=== PATIENT | female | born 2005 | race Hispanic/Latino ===

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

== ENCOUNTER 2024-05-05 22:23 | Emergency (ER) | payer MEDICAID ==
[~2024-05-05] VITALS: Ht 154.9 cm; Wt 71.7 kg
[~2024-05-05 22:23] MED LIST: AMOX1TAB16 PO
--- NOTE | 2024-05-05 22:43 | ERN ---
ED Note History of Present Illness Stated Complaint: VAGINAL BLEEDING Chief Complaint: Vaginal Bleeding Time Seen by MD: 22:26 Dictation: This is a 18-year-old female who is 11.2 weeks came in with vaginal bleeding that started 1 hour prior to the presentation to the ER. She reported that she was passing chunks of blood red in color associated with suprapubic pain. She is 2 para 1 no fevers chills or rigors. No diarrhea, burning micturition. No history of any blunt injury to the abdomen. Patient brought a picture of her bleeding sample in the toilet which showed large clots Temperature 98 pulse 92 respirations 16 blood pressure 138/86 with a pulse oximetry of 100% on room Allergies: Coded Allergies: No Known Drug Allergies (Unverified Allergy, Unknown, 08/30/22) Home Meds Active Scripts Amoxicillin/Potassium Clav (Amox Tr-K Clv 875-125 mg Tab) 1 Each Tablet, 1 EACH PO BID for 10 Days, #20 TAB Prov:NICHO EDWARDS 09/02/22 Past Medical History Past Medical History: No Pertinent History Surgical History: Tonsillectomy Social History: Negative, Lives with family History: Not Applicable LMP: Feb 20, 2024 : 2 Para: 1 Aborts: 2 RN Note Reviewed/Agreed w/PFSH: Yes Review of System Dictation Constitutional: Negative for fever,chills, and weight loss Eyes: Negative for injury, pain,redness, and discharge ENT: Negative for injury,pain or swelling Cardiovascular: Negative for chest pain, palpitations, and edema Respiratory: Negative for shortness of breath, cough, and wheezing, Abdomen/GI: Negative for abdominal pain, nausea, vomiting, diarrhea, and constipation Back: Negative for injury and pain : Positive for vaginal, bleeding and MS/Extremity: Negative for injury and deformity Skin: Negative for rash, and discoloration Neuro: Negative for headache, weakness, numbness, tingling, and seizure Psych: Negative for suicide ideation, homicidal ideation, and hallucinations Initial Vital Sign VS Vital Signs Date Time Temp Pulse Resp B/P (MAP) Pulse Ox O2 Delivery O2 Flow Rate FiO2 05/05/24 22:24 98.1 92 16 138/86 100 Room Air 05/05/24 22:46 0 21 Physical Exam Dictation General: awake, alert, NAD Head/Face: Normocephalic, atraumatic Eyes: PERRL, EOMI, vision at baseline ENT: oral cavity clear, TMs clear, no signs of infection Neck: Trachea midline, supple, no nuchal rigidity Cardiovascular: RRR, normal S1/S2, No MRGs, no JVD Respiratory: CTAB, no respiratory distress, No rales or wheezes Abdomen: Soft, non-tender, non-distended, normal bowel sounds, no guarding or rebound. 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 Results (Laboratory/Radiology) Laboratory/Radiology Laboratory Tests Test 05/05/24 22:40 05/05/24 22:45 Urine Color YELLOW (YELLOW) Urine Appearance CLOUDY (CLEAR) H Urine pH 5.5 (5.0-8.0) Urine Specific [place] 1.029 (1.001-1.031) Urine Protein 30 mg/dL (NEGATIVE) H Urine Glucose (UA) NEGATIVE mg/dL (NEGATIVE) Urine Ketones 20 mg/dL (NEGATIVE) H Urine Occult Blood LARGE (NEGATIVE) H Urine Nitrate NEGATIVE (NEGATIVE) Urine Bilirubin NEGATIVE mg/dL (NEGATIVE) Urine Urobilinogen 0.2 mg/dL (0.2-1.0) Urine Leukocyte Esterase NEGATIVE Sherman/uL Urine RBC TNTC /HPF (0-1) H Urine WBC 2-5 /HPF (0-1) H Urine Squamous Epithelial Cells FEW /HPF (0-2) Urine Bacteria None /HPF (None Seen) White Blood Count 11.1 K/uL (4.8-10.8) H Red Blood Count 4.47 MIL/uL (4.00-5.50) Hemoglobin 13.1 g/dL (12.0-16.0) Hematocrit 38.4 % (36-48) Mean Corpuscular Volume 85.9 fL (80-100) Mean Corpuscular Hemoglobin 29.3 pg (27.0-33.0) Mean Corpuscular Hemoglobin Concent 34.1 g/dL (32.0-36.0) Red Cell Distribution Width 15.2 % (11.0-15.5) Platelet Count 285 K/uL (130-400) Mean Platelet Volume 11.9 fL (7.5-10.5) H Immature Granulocyte % (Auto) 0.4 % (0-1) Neutrophils (%) (Auto) 77.1 % (40.0-77.0) H Lymphocytes (%) (Auto) 15.2 % (21.0-51.0) L Monocytes (%) (Auto) 6.1 % (3.0-13.0) Eosinophils (%) (Auto) 0.8 % (0.0-8.0) Basophils (%) (Auto) 0.4 % (0.0-5.0) Neutrophils # (Auto) 8.6 K/uL (1.8-7.7) H Lymphocytes # (Auto) 1.7 K/uL (1.0-4.8) Monocytes # (Auto) 0.7 K/uL (0.1-1.0) Eosinophils # (Auto) 0.09 K/uL (0.00-0.70) Basophils # (Auto) 0.04 K/uL (0.00-0.20) Absolute Immature Granulocyte (auto 0.04 K/uL (0-1) Nucleated Red Blood Cells 0.0 % (0.0-0.19) Sodium Level 141 mmol/L (136-145) Potassium Level 3.0 mmol/L (3.5-5.1) *L Chloride Level 103 mmol/L (101-111) Carbon Dioxide Level 27 mmol/L (21-32) Blood Urea Nitrogen 7 mg/dL (7-18) Creatinine 0.7 mg/dL (0.5-1.0) Glomerular Filtration Rate Calc 127 mL/min (>90) Random Glucose 108 mg/dL (70-105) H Total Calcium 9.5 mg/dL (8.5-10.1) Human Chorionic Gonadotropin, Quant 2644 mIU/mL (0-5) H Labs Reviewed?: Yes ED Course ED Course Orders Procedure Category Date Status Time Cbc With Differential LAB 05/05/24 Complete 22:27 Basic Metabolic Panel LAB 1/11/25 Complete 22:27 Hcg,Quantitative LAB 05/05/24 Complete 22:27 Us Ob <14 Weeks US 05/05/24 Taken 22:27 Abo/Rh BBK 05/05/24 Complete 22:29 Urinalysis LAB 05/05/24 Complete W/Microscopic 22:40 Potassium Bicarb/Cit PHA 05/06/24 Complete Ac 25meq (K-Lyte Ta 00:00 Current Medications Medications (Trade) Dose Ordered Sig/Celia Route PRN Reason Start Time Stop Time Status Last Admin Dose Admin Potassium Bicarbonate (K-Lyte Tablet Eff 25 Meq Tablet.eff) 50 meq ONCE ONCE PO 05/06/24 00:00 05/06/24 00:01 DC 05/05/24 23:54 Vital Signs Date Time Temp Pulse Resp B/P (MAP) Pulse Ox O2 Delivery O2 Flow Rate FiO2 05/06/24 00:11 87 16 131/74 99 Room Air* 0 21 05/05/24 22:46 98.1 88 16 128/67 98 Room Air* 0 21 05/05/24 22:24 98.1 92 16 138/86 100 Room Air We will perform diagnostic labs,imaging and administer medications according to the patient's complaint. Once the results are available, will review and personally interpreted the labs to rule out any acute life-threatening emergency the trach require immediate intervention and treatment. I will then re-evaluate the patient after treatment and diagnostic exams have return to determine whether the patient requires any further testing, can safely be discharged home or need further admission to hospital for additional treatment and evaluation. 11:25 p.m. Labs reviewed CBC showed a white count of 11.1 hemoglobin 13.1 platelets 285 urinalysis showed occult blood and too numerous to count RBCs but no obvious evidence of infection. Urine ketones were positive. BNP 7 and beta HCG are still pending at this time Preliminary OB ultrasound-no evidence of any gestational sac noted I had a long discussion with the patient and explained to her the ultrasound findings of no sac. This may indicate probably miscarriage although I did not have any old tests in the last 12 weeks to compare Medical Decision Making MDM MDM: Differential diagnosis: Threat of , miscarriage, subchorionic hemorrhage Rationale: Tests considered and ordered secondary to shared decision making include: Previous outside records reviewed: Old ER visits. Risk of complication and/or morbidity or mortality of patient management: None Medications-Per medication reconciliation Need for hospitalization: Patient does not meet criteria for hospitalization. Need for emergency major/minor surgery: No There are no social concerns with this patient. Prescription drug management Prescriptions will include symptomatic care Patient's prior external medical records from other ER visits were reviewed by troy nunes as indicated. Prior testing and results from previous visits were reviewed. Prior tests were taken into account with medical decision making and resource utilization, independent historian/historians were used to obtain complete medical history. I independently interpreted the test that were performed, results were reviewed by me and considered findings on radiology if ordered. Medical management and examination interpretation discussions were had by me with other qualified healthcare professionals as indicated for the patient's care. Problem List Problem List: (1) Vaginal bleeding affecting early (2) Miscarriage, threatened, early DX & DISP Disposition: Discharge Departure Impression: Primary Impression: Vaginal bleeding affecting early Additional Impression: Miscarriage, threatened, early Condition: Stable Additional Instructions: Patient and the caregiver have been informed of all the diagnostic tests and the imaging conducted during the today's visit to the emergency room and has verbalized understanding of the results I have personally reviewed and interpreted all diagnostic exams performed here in the ER today as well as the vital signs documented by the nursing staff. The patient is now being discharged to home and should follow up with the primary care physician or the specialist as directed by the ER staff. Follow-up with primary care provider in 1 to 2 days. Take medications as directed here in the emergency room. Okay to continue home medications unless otherwise discussed during your visit in the emergency room today. Return to your nearest emergency room if symptoms worsen or if there is no improvement. Call 911 if you need immediate assistance. Take Tylenol or Motrin [id number] as needed and if no contraindications are present. Increase oral hydration. A wound culture or urine culture was ordered here in the emergency room department please follow-up with primary care provider and advise them to get repeat ports from our facility. If you had any Chandra wrap/splints that were applied here, please do not remove them until you see your primary care or specialty. Patient to follow up with her Ob Dr. Giles Referrals: SELF,REFERRAL (PCP) VAIBHAV GILES [facility] May 05, 2024 22:43
[2024-05-05 22:46] VITALS: TEMP 98
[2024-05-05 22:58] LABS: BASOPHILS # (AUTO) 0.04 K/uL (0.00-0.20); BASOPHILS % (AUTO) 0.4 % (0.0-5.0); EOSINOPHILS # (AUTO) 0.09 K/uL (0.00-0.70); EOSINOPHILS % (AUTO) 0.8 % (0.0-8.0); HEMATOCRIT 38.4 % (36-48); IMMATURE GRANULOCYTE ABSOLUTE 0.04 K/uL (0-1); LYMPHOCYTES # (AUTO) 1.7 K/uL (1.0-4.8); LYMPHOCYTES % (AUTO) 15.2 % (21.0-51.0); MEAN CORPUSCULAR HEMOGLOBIN 29.3 pg (27.0-33.0); MEAN CORPUSCULAR HGB CONC 34.1 g/dL (32.0-36.0); MEAN CORPUSCULAR VOLUME 85.9 fL (80-100); MONOCYTES # (AUTO) 0.7 K/uL (0.1-1.0); MONOCYTES % (AUTO) 6.1 % (3.0-13.0); NEUTROPHILS # (AUTO) 8.6 K/uL (1.8-7.7); NEUTROPHILS % (AUTO) 77.1 % (40.0-77.0); PLATELET COUNT (AUTO) 285 K/uL (130-400); RED BLOOD CELL COUNT(AUTO) 4.47 MIL/uL (4.00-5.50); RED CELL DISTRIBUTION WIDTH 15.2 % (11.0-15.5); WHITE BLOOD COUNT (AUTO) 11.1 K/uL (4.8-10.8)
[2024-05-05 23:16] LABS: APPEARANCE,URINE CLOUDY (CLEAR); BILIRUBIN,URINE NEGATIVE (NEGATIVE); COLOR,URINE YELLOW (YELLOW); GLUCOSE, URINE (UA) NEGATIVE (NEGATIVE); KETONES,URINE 20 mg/dL (NEGATIVE); LEUKOCYTE ESTERASE ,URINE NEGATIVE Leu/uL (NEGATIVE); MUCUS,URINE FEW LPF (None Seen); NITRATE,URINE NEGATIVE (NEGATIVE); OCCULT BLOOD,URINE LARGE (NEGATIVE); PH,URINE 5.5 (5.0-8.0); PROTEIN,URINE 30 mg/dL (NEGATIVE); RBC,URINE TNTC /HPF (0-1); SQUAMOUS EPITHELIAL CELL,UR FEW /HPF (0-2); UROBILINOGEN,URINE 0.2 mg/dL (0.2-1.0)
[2024-05-05 23:37] LABS: CREATININE 0.7 mg/dL (0.5-1.0)
[2024-05-05] MEDS: PoTASSium BIcarbonate/CIT AC 25 MEQ TABLET.EFF PO ONE (23:54)
[2024-05-06 00:11] VITALS: BP 131/74; PULSE 87; RESP 16; O2SAT 99
--- NOTE | 2024-05-06 08:19 | HMCIMG ---
US OB <14 WEEKS HISTORY: Vaginal bleeding COMPARISON: None TECHNIQUE: Obstetrical ultrasound study was performed. FINDINGS: The uterus measures 9.6 x 5.6 x 5.9 centimeter. Both ovaries are not seen. No evidence of intrauterine gestational sac is seen. In a patient with positive test, differential diagnosis would include early versus ectopic versus missed . Beta-hCG correlation is recommended. Endometrial thickness is 1.5 cm with mild irregularity. No fluid is seen in the cul-de-sac. IMPRESSION: 1. No evidence of intrauterine gestational sac is seen. In a patient with positive test, differential diagnosis would include early versus ectopic versus missed . Beta-hCG correlation is recommended. Endometrial thickness is 1.5 cm with mild irregularity.
== END 2024-05-06 00:27 | disposition home or self-care (01) ==
LOC: EDH 22:23
DX: O20.0 Threatened abortion (principal); Z3A.11 11 weeks gestation of pregnancy; Z90.89 Acquired absence of other organs
CPT/HCPCS: 36415; 76801; 80048; 81001; 84702; 85025; 86900; 86901; 99284